=== PATIENT | female | born 1990 ===

== ENCOUNTER 2017-02-05 16:50 | Emergency (ER) | payer BC ==
[2017-02-05 17:09] VITALS: BP 117/86
--- NOTE | 2017-02-05 17:50 | RAD ---
INDICATION: Right foot injury. TECHNIQUE: 3 views of the right foot were obtained. FINDINGS: There is mild diffuse soft tissue swelling. The bones are in normal alignment. No fracture is seen. Joint spaces appear maintained. IMPRESSION: SOFT TISSUE SWELLING, NO FRACTURE IS SEEN. IF THE PATIENT'S SYMPTOMS PERSIST RECOMMEND FOLLOW-UP IMAGING.
--- NOTE | 2017-02-05 17:52 | UC ---
Lower Extremity/Ankle HPI - HPI Summary HPI Summary: Patient presents with an unremarkable past medical history.She presents today 1.5 weeks s/p traumatic injury of the right foot, she kicked the ankle of another glove pairer while playing soccer. She reports the entire foot was initially swollen and very badly bruised. But because of the lingering symtpoms of pain and bruising she comes in for evaluation of the injury. She denies any other injury or concerns at this visit. - History of Current Complaint Chief Complaint: UCLowerExtremity Stated Complaint: FOOT INJURY Time Seen by Provider: 02/05/17 17:21 Hx Obtained From: Patient Hx Last Menstrual Period: IUD ?: No Onset/Duration: Sudden Onset, Lasting Weeks Severity Initially: Moderate Severity Currently: Mild Aggravating Factor(s): Standing, Ambulation Able to Bear Weight: Yes - Risk Factors Gout Risk Factors: Negative DVT Risk Factors: Negative Septic Arthritis Risk Factor: Negative - Allergies/Home Medications Allergies/Adverse Reactions: Allergies Allergy/AdvReac Type Severity Reaction Status Date / Time No Known Allergies Allergy Verified 02/05/17 17:09 Home Medications: Home Medications Ascorbic Acid [Vitamin C] 200 mg PO DAILY 02/05/17 [History Confirmed 02/05/17] Ibuprofen [Advil] 400 mg PO Q6HR PRN 02/05/17 [History Confirmed 02/05/17] Levonorgestrel (Iud) [Mirena IUD] 02/05/17 [History] PMH/Surg Hx/FS Hx/Imm Hx Previously Healthy: Yes - Surgical History Surgical History: Yes Surgery Procedure, Year, and Place: WISDOM TEETH - Family History Known Family History: Positive: None - Social History Occupation: Employed Full-time Lives: Alone Alcohol Use: Weekly Alcohol Amount: 3x Substance Use Type: None Smoking Status (MU): Never Smoked Tobacco - Immunization History Most Recent Influenza Vaccination: 2017 Most Recent Tetanus Shot: 2013 Review of Systems Constitutional: Negative Skin: Negative Eyes: Negative ENT: Negative Respiratory: Negative Cardiovascular: Negative Gastrointestinal: Negative Genitourinary: Negative Motor: Negative Neurovascular: Negative Musculoskeletal: Arthralgia, Myalgia, Other: - states her foot feel cold. Neurological: Negative Psychological: Negative Is Patient Immunocompromised?: No All Other Systems Reviewed And Are Negative: Yes Physical Exam Triage Information Reviewed: Yes Appearance: Well-Appearing Vital Signs: Initial Vital Signs Temp 97.9 F 02/05/17 16:58 Pulse 80 02/05/17 16:58 Resp 18 02/05/17 16:58 BP 117/86 02/05/17 16:58 Pulse Ox 100 02/05/17 16:58 Vital Signs Reviewed: Yes Eye Exam: Normal ENT Exam: Normal Neck exam: Normal Neck: Positive: 1 Respiratory Exam: Normal Cardiovascular Exam: Normal Abdominal Exam: Normal Musculoskeletal Exam: Normal Musculoskeletal: Positive: Edema @ - resolving bruising of the right foot, yellow, green, and purple of the dorsum of foot. posterior tibial pulses and PP +. both feet are cool to touch. Neurological Exam: Normal Psychological Exam: Normal Skin Exam: Normal Lower Extremity Course/Dx - Course Course Of Treatment: Patient presents 1.5 week s/p traumatic injury to the right foot, she has been ambulatory since the injury. xrays were obtained and were negative for fracture. She presents with healing/resolving contusion of the right foot with no evidence of compartment syndrome on today exam. She need to continue to rest, elevate and take antiinflammatories and if her symtpoms persist follow up with the orthpedist. - Differential Dx/Diagnosis Differential Diagnosis/HQI/PQRI: Contusion Provider Diagnoses: contusion Discharge - Discharge Plan Condition: Stable Disposition: HOME Referrals: No Primary Care Phys,NOPCP [Primary Care Provider] -
== END 2017-02-05 18:00 | disposition home or self-care (01) ==
LOC: UCEAST 16:50
DX: S90.31XA Contusion of right foot, initial encounter (principal); W51.XXXA Accidental striking against or bumped into by another person, initial encounter; Y93.61 Activity, american tackle football; Y92.9 Unspecified place or not applicable
CPT/HCPCS: 99211; G0463

== ENCOUNTER 2018-11-06 13:14 | Emergency (ER) | payer OTHER, BC ==
--- OUTSIDE RECORDS SUMMARY | 2018-11-06 13:19 | XMS REPORT | Summary of Care ---
:1990 Author Organization [facility] Address [address] [place] [address] Care Team Providers Name Role Phone Liliana Helton MD Primary Care Provider Reason for Visit Reason Comments Follow Up to rosario freeman stated feeling really good since been on the celexa Encounter Details Date Type Department Care Team Description 10/09/[address] [facility] Giovana Helton (Primary Dx) [address] [facility] [place] [address] [address] [phone] [place] [address] [phone] Allergies No Known Allergiesdocumented as of this encounter (statuses as of 10/09/2018) Medications Medication Sig Dispensed Refills Start End Date Status Date Levonorgestrel by Intrauterine 0 Active (MIRENA, 52 MG, route. IUT) valacyclovir Take 1 Tab by 14 Tab 0 Active (VALTREX) 500 MG mouth DAILY. 9 Oral Tab citalopram Take 1 Tab by 90 Tab 1 Active (CELEXA) 10 MG mouth DAILY. 9 Oral TabIndications: Anxiety citalopram Take 1 Tab by 30 Tab 1 10/10/19 Discontinued (CELEXA) 10 MG mouth DAILY. 9 19 (Reorder) Oral TabIndications: Irritability documented as of this encounter (statuses as of 10/09/2018) Active Problems Problem Noted Date Genital herpes 10/10/2017 PMS (premenstrual syndrome) 10/10/2017 documented as of this encounter (statuses as of 10/09/2018) Immunizations Name Administration Dates Next Due DTAP Vaccine 10/07/1996, 01/16/1993, 05/05/1992, 03/09/1992, 01/12/1992 HIB 01/16/1993, 05/05/1992, 04/09/1992, 01/11/1992 Hepatitis A Vaccine Peds 12/02/2006, 09/27/2005 Hepatitis B Vaccine 01/16/1993, 05/05/1992, 03/09/1992 Human Papillomavirus 03/02/2008, 03/17/2007, 12/02/2006 Influenza (IM) Preservative Free 10/10/2017 MENINGOCOCCAL CONJUGATE VACCINE 08/05/2005 MMR VACCINE 10/07/1996, 11/16/1992 Polio - Inactivated Vaccine 10/07/1996, 01/16/1993, 03/09/1992, 01/11/1992 Rabies Vaccine 11/16/2008, 11/02/2008, 10/26/2008 TDAP Vaccine 09/27/2005 TYPHOID VACCINE 12/17/2016 documented as of this encounter Social History Tobacco Use Types Packs/Day Years Used Date Never Smoker Smokeless Tobacco: Never Used Alcohol Use Drinks/Week oz/Week Comments Yes three nights a week usually wine/beer Sex Assigned at Date Recorded Not on file Job Start Date Occupation Industry Not on file Not on file Not on file Travel History Travel Start Travel End No recent travel history available. documented as of this encounter Last Filed Vital Signs Vital Sign Reading Time Taken Comments Blood Pressure 110/70 10/09/2018 3:49 PM EDT Pulse 67 10/09/2018 3:49 PM EDT Temperature 37.1 10/09/2018 3:49 PM C (98.8 EDT F) Respiratory Rate - - Oxygen Saturation 98% 10/09/2018 3:49 PM EDT Inhaled Oxygen Concentration - - Weight 54.8 kg (120 lb 12.8 oz) 10/09/2018 3:49 PM EDT Height 167.6 cm (5' 6") 10/09/2018 3:49 PM EDT Body Mass Index 19.5 10/09/2018 3:49 PM EDT documented in this encounter Patient Instructions Patient InstructionsLiliana Helton MD - 10/09/2018 3:40 PM EDT1. Continue same treatment 2. Follow up for physical in and as needed documented in this encounter Progress Notes Liliana Helton MD - 10/09/2018 3:40 PM EDT PATIENT: Lisa Morse : 1990 DATE OF SERVICE: 10/09/2018 Patient comes follow up anxiety Doing very well on current dose of Celexa Tolerates medication well Past Medical History: Diagnosis Date Genital herpes 10/10/2017 Outpatient Medications as of 10/09/2018 Medication Sig Dispense Refill Levonorgestrel (MIRENA, 52 MG, IUT) by Intrauterine route. valacyclovir (VALTREX) 500 MG Oral Tab Take 1 Tab by mouth DAILY. 14 Tab 0 No current facility-administered medications on file as of 10/09/2018. BP 110/70 (BP Location: Left arm, Patient Position: Sitting) | Pulse 67 | Temp 98.8 F (37.1 C) | Ht 5' 6" (1.676 m) | Wt 120 lb 12.8 oz (54.8 kg ) | SpO2 98% | BMI 19.50 kg/m General appearance: alert, well appearing, and in no distress. Mental Status: alert, oriented to person, place, and time, normal mood, behavior , speech, dress, motor activity, and thought processes. ICD-9-CM ICD-10-CM 1. Anxiety 300.00 F41.9 citalopram (CELEXA) 10 MG Oral Tab Patient Instructions 1. Continue same treatment 2. Follow up for physical in and as needed Author: Liliana Helton MD 10/09/2018 16:00 documented in this encounter Plan of Treatment Health Maintenance Due Date Last Done Comments INFLUENZA VACCINE (#1) 2018 10/10/2017 DEPRESSION SCREENING 08/20/2019 08/19/2018 PAP SMEAR 04/21/2021 04/21/2018 MENINGOCOCCAL VACCINE IMM Aged Out 08/05/2005 No longer eligible based on patient's age to complete this topic HPV IMMUNIZATION SERIES Completed 03/02/2008, 03/17/2007, 12/02/2006 PNEUMOCOCCAL 0-64 YRS Aged Out No longer eligible based on patient's age to complete this topic documented as of this encounter Results Not on filedocumented in this encounter Visit Diagnoses Diagnosis Anxiety - Primary Anxiety state, unspecified documented in this encounter documented as of this encounter
[2018-11-06 13:29] VITALS: BP 113/73
--- NOTE | 2018-11-06 13:42 | UC ---
Head Injury HPI - HPI Summary HPI Summary: 28 yo female presents with head injury. She tells me that on 11/04 evening she was playing soccer and was hit in the head with the soccer ball around her left eye and left forehead. No LOC. She continued playing, but later that night developed a headache and felt "foggy". Yesterday she felt better and headache resolved, but noticed some difficulty concentrating. Today she felt well and went to work ([employer]) and was at work for about 2-3 hours before she started feeling "foggy" again. No headache. She stopped working and came to . She is most concerned because she has an exam next week and does not think she will be able to properly studying this weekend. She is requesting a note to postpone her exam. She has not taken anything OTC for her symptoms. Denies vision changes , dizziness, SOB, chest pain, n/v, numbness, tingling. - History Of Current Complaint Chief Complaint: UCHeadInjury Stated Complaint: HEAD INJURY Time Seen by Provider: 11/06/18 13:41 Hx Obtained From: Patient Hx Last Menstrual Period: 10/24/18 Onset/Duration: Sudden Onset Severity Currently: Mild Severity Initially: Mild Pain Intensity: 4 - Allergies/Home Medications Allergies/Adverse Reactions: Allergies Allergy/AdvReac Type Severity Reaction Status Date / Time No Known Allergies Allergy Verified 11/06/18 13:29 PMH/Surg Hx/FS Hx/Imm Hx - Additional Past Medical History Additional PMH: None - Surgical History Surgical History: Yes Surgery Procedure, Year, and Place: WISDOM TEETH - Family History Known Family History: Positive: None - Social History Occupation: Employed Part-time, Student Lives: With Family Alcohol Use: Weekly Alcohol Amount: 3x Substance Use Type: None Smoking Status (MU): Never Smoked Tobacco - Immunization History Most Recent Influenza Vaccination: 2017 Most Recent Tetanus Shot: 2014 Review of Systems All Other Systems Reviewed And Are Negative: No Constitutional: Positive: Negative Skin: Positive: Negative Eyes: Positive: Negative ENT: Positive: Negative Respiratory: Positive: Negative Cardiovascular: Positive: Negative Gastrointestinal: Positive: Negative Genitourinary: Positive: Negative Motor: Positive: Negative Neurovascular: Positive: Negative Musculoskeletal: Positive: Negative Neurological: Positive: Headache Psychological: Positive: Negative Physical Exam - Summary Physical Exam Summary: GENERAL: NAD. WDWN. No pain distress. SKIN: No rashes, sores, ulcers, masses, lesions. HEENT: Head: AT/NC. No raccoon eyes or battles sign. Eyes: PERRLA. EOM intact. Conjunctiva clear without inflammation or discharge. Ears: Hearing grossly normal. TMs intact, no bulging, erythema, or edema. No hemotympanum Nose: Nasal mucosa pink and moist. NTTP maxillary and frontal sinus. Throat: Posterior oropharynx without exudates, erythema, or tonsillar enlargement. Uvula midline. NECK: Supple. Nontender. FROM CHEST: CTAB. No r/r/w. No accessory muscle use. Breathing comfortably and in no distress. CV: RRR. Without m/r/g. Pulses intact. Brisk cap refill. ABDOMEN: Soft. NTTP. Bowel sounds present MSK: FROM in B/L UEs and LEs with symmetric strength. NEURO: A&Ox3. 3 word recall, remote, recent memory, ability to follow 2-step directions, and attention intact. CN: II: Peripheral palmer intact. Vision normal. III, IV, : EOMI. No nystagmus. PERRLA. V: Sensations intact and symmetric. Opens mouth and clenches teeth. VII: No facial asymmetry. Forehead wrinkles. Grins, shuts eyes, frowns, puffs cheeks. VIII: Hearing intact to finger rub. IX, X: Swallows and coughs. Uvula midline. XI: Shrugs shoulders. Turns head against resistance. XII: No tongue deviation [id number] are intact. Gait with normal base. Romberg: maintains balance, no pronator drift. Normal speech. No facial drooping. PSYCH: Age appropriate behavior. Triage Information Reviewed: Yes Vital Signs: Initial Vital Signs Temp 98.9 F 11/06/18 13:24 Pulse 80 11/06/18 13:24 Resp 16 11/06/18 13:24 BP 113/73 11/06/18 13:24 Pulse Ox 100 11/06/18 13:24 Vital Signs Reviewed: Yes Head Injury Course/Dx - Course Course Of Treatment: Mild head injury with concussive like symptoms. Advised to practice brain rest and physical rest. Avoid screen time. Will provide her with a note to postpone all exams until after next week. Advised to go to the ED if she develops a severe headache, vomiting, SOB, vision changes, numbness, or weakness. - Differential Dx/Diagnosis Provider Diagnosis: Head injury Discharge ED - Sign-Out/Discharge Documenting (check all that apply): Patient Departure All imaging exams completed and their final reports reviewed: No Studies - Discharge Plan Condition: Stable Disposition: HOME Patient Education Materials: Concussion (ED), Post Concussion Syndrome (ED), Sports Concussion (ED) Forms: *School Release Referrals: No Primary Care Phys,NOPCP [Primary Care Provider] - [facility] [Provider Group] - If Needed Additional Instructions: If you develop a fever, shortness of breath, chest pain, new or worsening symptoms - please call your PCP or go to the ED immediately. - Billing Disposition and Condition Condition: STABLE Disposition: Home
== END 2018-11-06 13:59 | disposition home or self-care (01) ==
LOC: UCEAST 13:14
DX: S09.90XA Unspecified injury of head, initial encounter (principal); W21.02XA Struck by soccer ball, initial encounter; Y93.66 Activity, soccer; Y92.322 Soccer field as the place of occurrence of the external cause
CPT/HCPCS: 99211; G0463